=== PATIENT | male | born 1950 | race Hispanic/Latino ===

== ENCOUNTER → 2025-06-12 | Outpatient (CLI) | payer OTHER ==
--- NOTE | 2025-06-12 13:28 | HMCIMG ---
US VENOUS DOPPLER BILATERAL REASON: Localized edema. COMPARISON: None Technique: Bilateral venous doppler ultrasound was performed with spectral analysis and color flow imaging technique. FINDINGS: There is a normal appearance of the common femoral, deep femoral, the profunda femoris and popliteal veins. Proximal calf veins appear normal as well. There is normal response to compression and augmentation. There is no evidence of deep venous thrombosis. IMPRESSION: Normal bilateral lower extremity venous Doppler ultrasound.
--- NOTE | 2025-06-13 11:16 | HMCSR ---
APPROVED REPORT EXAM: Two-dimensional and M-mode echocardiogram with Doppler and color Doppler. INDICATION ICD: R60.0 Localized edema 2D Dimensions RVDd4.5 cmLVEF(%)49.8 (>50%)LVED Vol(simp.)42.0 mL IVSd1.1 (0.7-1.1cm)FS(%)25 %LVES Vol(simp.)14.0 mL LVDd4.4 (3.8-5.6cm)LA (2D)4.5 (1.6-4.0cm)LVEF(%, simp.)67 % PWd1.3 (0.7-1.1cm)Ao Root(2D)3.0 (2.0-3.7cm)LA ESV INDEX (BP)29.52 mL/m2 LVDs3.3 (2.5-4.0cm)LVOT diam2.0 (1.8-2.4cm) IVC diam2.4 cm M-Mode Dimensions EPSS0.7 cm LA (MM)3.9 (1.6-4.0cm) Ao Root(MM)3.1 (2.0-3.7cm) Aortic Valve AoV Vmax3.7 m/Janice Peak GR69.2 mmHgLVOT Vmax1.1 m/s AoV VTI0.7 mAo Mean GR42.6 mmHgLVOT VTI0.29 m TRISTIAN (VMAX)1.01 cm2Al P1/2T430 msAVA (VTI) 1.3 cm2 Mitral Valve MV E Vmax99.3 cm/sDECEL Apkb163 ms MV A Mekl142.3 cm/sP 1/2 T66 ms E/A ratio0.8MVA (PHT)3.3 cm2 TDI E/E' Ikdcqa31.2E/E' Flhtiyt29.0 Medial E' Peak V5.46 cm/sLateral E' Peak V6.21 cm/s Pulmonary Valve PV Vmax1.2 m/sPV VTI0.23 mPV Mean GR3.0 mmHg PV Peak GR5.5 mmHg Tricuspid Valve RAP (EST) 15 upQyUVWG45.0 mmHg Left Ventricle The left ventricle is normal size. There is normal LV segmental wall motion. There is normal left cecilia tricular wall thickness. The LVEF is 65-70%. Grade I diastolic dysfunction. Right Ventricle The right ventricle is mildly dilated. The right ventricular systolic function is normal. Atria The left atrium size is normal. The right atrium size is dilated. Aortic Valve The aortic valve is thickened and mildly calcified with restricted opening. Moderate aortic regurgita tion is present. There is severe aortic valvular stenosis. Pk G 69mmHg, Mean G 43mmHg. AoV area 1.0cm 2 Mitral Valve There is mitral annular calcification. There is no mitral valve regurgitation noted. There is no mitr al valve stenosis. Tricuspid Valve The tricuspid valve is normal in structure. There is trace of tricuspid valve regurgitation noted. Pulmonic Valve The pulmonary valve is normal in structure. There is no pulmonic valvular regurgitation. Great Vessels The aortic root is normal in size. IVC is dilated and collapses <50% with inspiration. Pericardium There is no pericardial effusion. Other Information Quality : Technically difficult study due to body habitus Conclusion There is severe aortic valvular stenosis. Pk G 69mmHg, Mean G 43mmHg. AoV area 1.0cm2 The LVEF is 65-70%.
== END | disposition home or self-care (01) ==
LOC: RAH 11:47
PROVIDERS: ATTEND Internal Medicine
DX: I08.0 Rheumatic disorders of both mitral and aortic valves (principal); R60.0 Localized edema; D45 Polycythemia vera
CPT/HCPCS: 93306; 93970